=== PATIENT | female | born 1985 | race Caucasian/White ===

== ENCOUNTER → 2020-07-29 17:17 | Outpatient (CLI) | payer MEDICAID, SELFPAY | PROVIDERS: PCP Internal Medicine; Referring Provider Nurse Practitioner Family; Visit Provider Nurse Practitioner Family | DX: Z20.828 Contact with and (suspected) exposure to other viral communicable diseases (principal) | CPT/HCPCS: 87635; C9803; U0003 ==

== ENCOUNTER → 2022-10-20 | Outpatient (CLI) | payer MEDICAID, SELFPAY ==
[2022-10-20 16:47] LABS: Mucous, Urine 0 SEEN /hpf (<or=2+)
[2022-10-20 17:35] LABS: Color, Urine Yellow (Yellow); Glucose, Dipstick Normal (Normal); Ketone-Dipstick Negative (Negative); Leukocyte Esterase-Dipstick 500 /ul (Negative); Nitrite-Dipstick Positive (Negative); Occult Blood-Urine 50 /ul (Negative); Protein-Dipstick 30 mg/dl (Negative); Specific Gravity, Urine 1.015 (1.002-1.030); Urine Bilirubin Dipstick Negative (Negative); Urine Clarity Cloudy (Clear); Urine Urobilinogen 1 mg/dl (Normal)
[2022-10-20 21:33] LABS: Red Blood Cells-Urine 0-5 SEEN /hpf (0-5); Squamous Epithelial Cells - UA 0-5 SEEN /hpf (5-10); White Blood Cells 50-100 SEEN /hpf (0-5)
[2022-10-20 21:35] LABS: Bacteria RARE /hpf (None Seen)
== END | disposition home or self-care (01) ==
LOC: LABSPEC 16:31
PROVIDERS: PCP Internal Medicine; Referring Provider Nurse Practitioner Family; Visit Provider Nurse Practitioner Family
DX: R30.0 Dysuria (principal); R35.0 Frequency of micturition; M54.50 Low back pain, unspecified
CPT/HCPCS: 81001; 87086; 87088

== ENCOUNTER 2023-01-23 10:04 | Emergency (ER) | payer MEDICAID, SELFPAY ==
[2023-01-23 10:04] VITALS: BP 116/86; PULSE 55; RESP 16; TEMP 36.1; O2SAT 99; BMI 51.0
--- NOTE | 2023-01-23 10:35 | CT_ITS ---
STUDY: CT ABDOMEN AND PELVIS WITH CONTRAST REASON FOR EXAM: Female, 38 years old. Back pain, C diff, Gallstones RADIATION DOSAGE (If Supplied By Facility): CTDIvol = ( 20.21 ) mGy, DLP = ( 1370.69 ) mGycm TECHNIQUE: Transaxial images were obtained from the dome of the diaphragm to the symphysis pubis without oral contrast. IV 100mL Isovue-300 was administered. Sagittal and coronal images were reconstructed. Individualized dose optimization techniques were used for this CT. COMPARISON: None. FINDINGS: The visualized lung bases are unremarkable. The visualized portions of the heart are within normal limits. Normal liver. There are multiple small gallstones. There is mild splenomegaly. Normal pancreas. Normal bilateral adrenal glands. Normal right kidney. Normal left kidney. Normal visualized stomach. Minimally fluid distended proximal small bowel. There are scattered colonic diverticula consistent with diverticulosis. There are surgical clips in the region of the appendix consistent with a prior appendectomy. Normal abdominal aorta. Normal inferior vena cava. Normal retroperitoneum. Normal urinary bladder. Varicose veins are seen in the subcutaneous tissues overlying the left groin extending to the distal portion of the pelvis. Normal osseous structures. CT/Abdomen/Pelvis W IV Cont ONLY IMPRESSION: Mild splenomegaly. Multiple small gallstones. Varicose veins seen in the subcutaneous tissues overlying the left groin and lower left lateral abdominal wall. Minimally distended fluid-filled proximal small bowel loops. Electronically Signed: Emir Cespedes MD at 12:22 EDT ,
--- NOTE | 2023-01-23 10:39 | EX.ED.DYSGE1 ---
HPI History of Present Illness Chief Complaint: Back Informant: patient Onset/Context/Timing Onset: Today Narrative Narrative: Patient present secondary to low back pain. She woke this morning with low back pain and describes pain across her low back wrapping around into her abdomen. Patient was recently admitted to [facility] where she was told she had gallstones and C. difficile. She was discharged yesterday with p.o. vancomycin. She has not had fever or chills. PFSH PFS Medical History Anemia Home Medications aripiprazole 10 mg tablet (Abilify) 10 mg PO DAILY 10/20/22 [History Last Taken Unknown] buspirone 10 mg tablet 20 mg PO BID 10/20/22 [History Last Taken Unknown] folic acid 1 mg tablet 1 mg PO DAILY 10/20/22 [History Last Taken Unknown] phenazopyridine 200 mg tablet (Pyridium) 200 mg PO TID PRN pain 6 doses #6 tabs 10/20/22 [Rx Last Taken Unknown] lidocaine 5 % topical patch (Lidoderm) 2 patch topical DAILY #15 ea 01/23/23 [Rx Last Taken Unknown] Allergy/AdvReac Type Severity Reaction Status Date / Time cefuroxime axetil Allergy Rash Verified 01/23/23 10:08 [From Ceftin] codeine AdvReac Nausea Verified 01/23/23 10:08 Surgical History History of delivery History of hysterectomy Hx of appendectomy Social History Smoking Status: Current some day smoker tobacco type: cigarettes ROS ROS ED Constitutional Constitutional ED: Denies chills or fever(s) Eyes Eyes: Denies change in vision or discharge from eye(s) ENT ENT ED: Denies discharge from eye(s), rhinorrhea or sore throat Cardiovascular Cardiovascular: Denies chest pain or palpitations Respiratory/Chest Respiratory/Chest: Denies cough or dyspnea Gastrointestinal Gastrointestinal: Reports abdominal pain and diarrhea; Denies nausea or vomiting Genitourinary Genitourinary ED: Denies dysuria Musculoskeletal Musculoskeletal: Reports back pain; Denies extremity pain Integumentary Denies Abrasions or rash Neurologic Neurologic: Denies headache(s) or weakness Allergic/Immunologic Allergic/Immunologic ED: Denies lip swelling or urticaria EXAM Physical Exam Const Vital Signs: 01/23/23 10:04 Temperature 97.0 F L Temperature Source Temporal Pulse Rate 55 L Respiratory Rate 16 Blood Pressure 116/86 H Blood Pressure Mean 96 Pulse Ox 99 Oxygen Delivery Method Room Air Positive well nourished and well developed General Appearance ED: well developed HEENT Reports normocephalic and head/scalp atraumatic Eyes PERRL and EOMs intact bilaterally Neck supple Chest Wall inspection of chest normal and palpation of chest normal Resp normal respiratory effort and clear to auscultation bilaterally Cardio regular rate and regular rhythm GI non-tender Auscultation: hypoactive bowel sounds Palpation: soft Back/Spine Back/Spine Narrative: Reproducible tenderness in the lumbar paraspinal muscles bilaterally. No overlying skin change. Extremity normal to inspection Neuro oriented x3 and no sensory deficits noted Sensorium / Orientation: alert Motor Exam: strength 5/5 throughout Psych mental status grossly normal Skin no rashes or lesions noted MDM MDM MDM Narrative Medical decision making narrative: Patient was given morphine and Zofran for pain. Labwork obtained to evaluate for leukocytosis, anemia, and electrolyte derangement. CT scan of the abdomen and pelvis obtained given her recent diagnosis of C. difficile and gallstones with increased pain. Lab Data Attestation: I reviewed the patient's lab results. Labs: Laboratory Results - last 24 hr 01/23/23 01/23/23 01/23/23 10:50 10:50 10:50 WBC 4.7 RBC 4.70 Hgb 13.9 Hct 41.5 MCV 88.3 MCH 29.6 MCHC 33.5 RDW Std Deviation 41.8 RDW Coeff of Veronica 13.0 Plt Count 312 MPV 9.0 Immature Gran % (Auto) 0.400 Neut % (Auto) 59.1 Lymph % (Auto) 31.5 [place] % (Auto) 7.5 Eos % (Auto) 1.3 Baso % (Auto) 0.2 Absolute Neuts (auto) 2.8 Absolute Lymphs (auto) 1.47 Nucleated RBC % 0 Sodium 139 Potassium 3.6 Chloride 109 H Carbon Dioxide 24.0 Anion Gap 6 BUN 7 Creatinine 0.61 Estim Creat Clear Calc 90.70 Est GFR (MDRD) Af Amer 141 Est GFR (MDRD) Non-Af 117 BUN/Creatinine Ratio 11.4 Glucose 84 Lactic Acid 1.0 Calcium 9.6 Total Bilirubin 0.80 Direct Bilirubin 0.19 AST 31 ALT 43 Alkaline Phosphatase 57 Total Protein 7.6 Albumin 3.6 Globulin 4.0 Lipase 104 Radiography Diagnostic Testing: Clinical Impression(s) from Imaging Studies Abdomen/Pelvis CT 01/23/23 10:35 IMPRESSION: Mild splenomegaly. Multiple small gallstones. Varicose veins seen in the subcutaneous tissues overlying the left groin and lower left lateral abdominal wall. Minimally distended fluid-filled proximal small bowel loops. Electronically Signed: Emir Cespedes MD at 12:22 EDT , Treatment and Re-Evaluation :: CBC and chemistry studies are unremarkable. Lactic acid is normal at 1. CT scan with IV contrast reveals mild splenomegaly and multiple small gallstones. Minimally distended fluid-filled proximal small bowel loops are appreciated. Test results are discussed with the patient and family at bedside. I was able to review some of the records from [facility], however a discharge summary is not completed on either the ER visit or her hospital stay. I did find her C. difficile test. She tested positive for the C. difficile antigen but negative for the C. difficile toxin. Given that she has already been started on p.o. vancomycin I did encourage her to complete the full course. She will be written for Lidoderm patches for her back and can take Tylenol or ibuprofen. Return instructions given. Discharge Plan Triage Chief Complaint: Back ED Provider: Kimi Lin Dx/Rx/DC Orders Clinical Impression: Abdominal pain, Back pain Instructions: ED Back Pain (Acute or Chronic) Prescriptions: New lidocaine [Lidoderm] 5 % adhesive patch,medicated 2 patch topical DAILY Qty: 15 0RF Rx Instructions: leave on most painful area for up to 12 hrs No Action buspirone 10 mg tablet 20 mg PO BID aripiprazole [Abilify] 10 mg tablet 10 mg PO DAILY folic acid 1 mg tablet 1 mg PO DAILY phenazopyridine [Pyridium] 200 mg tablet 200 mg PO TID PRN (Reason: pain) Qty: 6 0RF Primary Care Provider: Cassie Villar Referrals: Cassie Villar MD [Primary Care Provider] - 1 Week Disposition Disposition: Home, Self Care Discharge Date/Time: 01/23/23 13:10
[2023-01-23] MEDS: 0.9% Normal Saline 1,000 ML 150 ML IV (10:58)
[2023-01-23] MEDS: Ondansetron 4 MG/2 ML Vial IV (10:58)
[2023-01-23] MEDS: Morphine 4 MG/ML Syringe IV (10:58)
[2023-01-23 11:09] LABS: Absolute Lymphocyte Count 1.47 X10^3/uL (0.83-4.51); Absolute Neutrophil Count 2.8 X10^3/uL (2.0-7.7); Basophil# 0.01 X10^3/uL; Basophil% 0.2 % (0-1); Eosinophil# 0.06 X10^3/uL; Eosinophils% 1.3 % (0-5); Hematocrit 41.5 % (37-47); Hemoglobin 13.9 g/dL (12.0-15.0); Lymphocyte # 1.47 X10^3/ul (0.83-4.51); Lymphocyte % 31.5 % (19-41); Mean Corp Hgb Conc 33.5 g/dL (32-36); Mean Corpuscular Hgb 29.6 pg (27.0-32.0); Mean Corpuscular Volume 88.3 fL (81-99); Monocyte# 0.35 X10^3/uL; Monocyte% 7.5 % (0-10); NRBC Flagged by Analyzer 0 % (0-5); Neutrophil # 2.75 X10^3/uL (2.7-7.7); Neutrophil % 59.1 % (47-70); Platelet Count 312 K/mm3 (150-450); RBC Distribution Width SD 41.8 fl (35.1-43.9); White Blood Count 4.7 K/mm3 (4.4-11.0)
[2023-01-23 11:31] LABS: AST(SGOT) 31 U/L (15-37); Alanine Aminotransfer ALT/SGPT 43 U/L (13-56); Albumin, Serum 3.6 g/dL (3.2-5.0); Alkaline Phosphatase 57 U/L (45-117); Anion Gap 6 (5-15); BUN 7 mg/dL (7-18); BUN/Creat Ratio 11.4 RATIO (10-20); Bilirubin, Direct 0.19 mg/dL (0.00-0.30); Calcium,Total 9.6 mg/dL (8.5-10.1); Chloride 109 mmol/L (98-107); Creatinine, Serum 0.61 mg/dL (0.55-1.02); EST Glomerular Filtration Rate 117 mL/min (>60); Est Glom Filt Rate - Afr Amer 141 mL/min (>60); Glucose 84 mg/dL (74-106); Lipase 104 U/L (73-393); Potassium 3.6 mmol/L (3.5-5.1); Protein, Total 7.6 g/dL (6.4-8.2); Sodium Level 139 mmol/L (136-145)
== END 2023-01-23 13:10 | disposition home or self-care (01) ==
PROVIDERS: Emergency Provider Emergency Medicine; PCP Internal Medicine; Visit Provider Emergency Medicine
DX: M54.9 Dorsalgia, unspecified (principal); K80.20 Calculus of gallbladder without cholecystitis without obstruction; F17.210 Nicotine dependence, cigarettes, uncomplicated; R10.9 Unspecified abdominal pain
CPT/HCPCS: 74177; 80048; 80076; 83605; 83690; 85025; 96361; 96374; 96375; 99283; J7030; Q9967; A4216; J2405

== ENCOUNTER 2023-08-25 12:09 | Emergency (ER) | payer MEDICAID, SELFPAY ==
[2023-08-25 12:09] VITALS: BP 148/101; PULSE 77; RESP 16; TEMP 36.4; O2SAT 98; BMI 47.1
--- NOTE | 2023-08-25 13:39 | VDLE_ITS ---
Reason For Study: Left groin pain Procedure LEFT This is a venous duplex using B-mode, color GSV is normal. flow and spectral Doppler. CFV is compressible, spontaneous, phasic, Exam performed portable in ED. competent, and demonstrates normal A preliminary report was called and/or faxed augmentation. to Dr. Yoon. FV is compressible, spontaneous, phasic, competent and demonstrates normal augmentation. POP V is compressible, spontaneous, phasic, competent and demonstrates normal augmentation. T/P Trunk is compressible. PTV is compressible. LT PerV is compressible. Thrombus filled varicose veins are noted in the left groin. VL/Venous Duplex US, Unilateral Interpretation Summary There is no evidence of left lower extremity deep vein thrombosis. Left great s aphenous vein appears patent and compressible segmentally. Superficial thrombophlebitis varicosities left groin Ordering Physician: Pablo Yoon Referring Physician: Phuong Jackson Performed By: Aruna Newberry RVT
--- NOTE | 2023-08-25 13:40 | EX.ED.DYSGE1 ---
HPI History of Present Illness Chief Complaint: Other, Pain/Inj Narrative Narrative: 38-year-old female past medical history of recent laparoscopic cholecystectomy 2 days ago, presents with left upper thigh pain and redness that she noticed this morning. She states that yesterday, she had soreness in her left upper thigh. She awoke this morning with increased pain and redness to the area. She denies any recent trauma. No chest pain or shortness of breath, no fevers or chills. She states that she is concerned that she has a blood clot. She did not stay overnight in the hospital and this was done on an outpatient basis. [facility] Medical History Anemia Home Medications aripiprazole 10 mg tablet (Abilify) 10 mg PO DAILY 10/20/22 [History Last Taken Unknown] buspirone 10 mg tablet 20 mg PO BID 10/20/22 [History Last Taken Unknown] folic acid 1 mg tablet 1 mg PO DAILY 10/20/22 [History Last Taken Unknown] phenazopyridine 200 mg tablet (Pyridium) 200 mg PO TID PRN pain 6 doses #6 tabs 10/20/22 [Rx Last Taken Unknown] lidocaine 5 % topical patch (Lidoderm) 2 patch topical DAILY #15 ea 01/23/23 [Rx Last Taken Unknown] azithromycin 250 mg tablet (Zithromax Z-Devante) See Rx Instructions PO .COMPLEX #6 tabs 05/16/23 [Rx Last Taken Unknown] Allergy/AdvReac Type Severity Reaction Status Date / Time cefuroxime axetil Allergy Rash Verified 08/25/23 12:11 [From Ceftin] codeine AdvReac Nausea Verified 08/25/23 12:11 Surgical History History of delivery History of hysterectomy Hx of appendectomy Hx of cholecystectomy Social History Smoking Status: Current some day smoker tobacco type: cigarettes ROS ROS ED ROS Narrative Constitutional: No fever, no chills. HEENT: No sore throat. No neck pain. No loss of vision. No rhinorrhea. Cardiovascular: No chest pain. No palpitations. No pedal edema. Respiratory: No cough, no shortness of breath. Abdominal: No abdominal pain. No nausea. No vomiting. Genitourinary: No dysuria. No hematuria. Musculoskeletal: Left anterior, upper thigh pain and redness. No arthralgias. Neurologic: No headaches. No dizziness. No lightheadedness. Skin: No rash. No change in color. Psychiatric: No depression. No anxiety. EXAM Physical Exam Narrative Exam Narrative: Afebrile. Vital signs noted. HEENT: Normocephalic. Atraumatic. PERRL, EOMI. Neck soft and supple. No point tenderness or step off. Cardiovascular: Regular rate and rhythm. No murmurs, rubs, or gallops appreciated. Respiratory: No tachypnea. Lungs clear to auscultation bilaterally. Gastrointestinal: Abdomen soft, appropriately tender, laparoscopic port incisions clean, dry, and intact with bandages, abdomen with normoactive bowel sounds. No rebound or guarding. Neurological: Awake. Alert. Nonfocal, nonlateralizing. Skin: No rash. Mild erythema and tenderness along varicose veins/superficial veins left anterior thigh. Musculoskeletal: No pedal edema. Full range of motion extremities. Palpable dorsalis pedis pulse. No calf swelling. Const Vital Signs: 08/25/23 12:09 08/25/23 13:06 Temperature 97.6 F L Temperature Source Temporal Pulse Rate 77 Respiratory Rate 16 Respiratory Effort Normal Non-Labored Respiratory Pattern Normal Blood Pressure 148/101 H Blood Pressure Mean 116 Pulse Ox 98 Oxygen Delivery Method Room Air MDM MDM MDM Narrative Medical decision making narrative: In the differential diagnosis would be contusion of left upper thigh versus superficial/varicose vein thrombophlebitis, versus DVT. I have low concern for DVT given her superficial tenderness and engorgement of those veins along with mild firmness. Ultrasound was obtained of the left lower extremity. Preliminary read of the venous Doppler of the left lower extremity says not show any evidence of DVT. She does have superficial thrombophlebitis of varicose veins in that area. At this point in time, I do not feel she requires observation or admission. She was referred to the vascular surgeon. She will continue warm compresses. As she is only postop day 2 from her laparoscopic cholecystectomy, I am hesitant to start her on aspirin or NSAIDs given the risk of postoperative bleeding. She will take [id number] Tylenol as needed and any pain medication she was given for her surgery. Return instructions to the emergency department were reviewed. Disposition is discharged home in stable condition. History & Record Review Discussion w/independent historian: Patient Additional record(s) reviewed:: Prior ED visit (Noncontributory to current chief complaint.) Discharge Plan Triage Chief Complaint: Other, Pain/Inj ED Provider: Pablo Yoon Dx/Rx/DC Orders Clinical Impression: Superficial thrombophlebitis, Varicose vein of lower extremity with phlebitis Instructions: ED Thrombophlebitis, Superficial, ED Varicose Veins Prescriptions: No Action buspirone 10 mg tablet 20 mg PO BID aripiprazole [Abilify] 10 mg tablet 10 mg PO DAILY folic acid 1 mg tablet 1 mg PO DAILY phenazopyridine [Pyridium] 200 mg tablet 200 mg PO TID PRN (Reason: pain) Qty: 6 0RF azithromycin [Zithromax Z-Devante] 250 mg tablet See Rx Instructions PO .COMPLEX Qty: 6 0RF Rx Instructions: take 500 mg today (day 1), then 250 mg for 4 days (days 2-5) PO lidocaine [Lidoderm] 5 % adhesive patch,medicated 2 patch topical DAILY Qty: 15 0RF Rx Instructions: leave on most painful area for up to 12 hrs Primary Care Provider: Phuong Jackson Referrals: Stu Drake MD [Med Staff - Active Staff] - 1 Week if not improving Phuong Jackson MD [Primary Care Provider] - Disposition Disposition: Home, Self Care
[2023-08-25 15:07] VITALS: BP 140/76; PULSE 66; RESP 18; O2SAT 99
== END 2023-08-25 15:09 | disposition home or self-care (01) ==
PROVIDERS: Emergency Provider Emergency Medicine; PCP Internal Medicine Infectious Disease; Visit Provider Emergency Medicine
DX: I80.02 Phlebitis and thrombophlebitis of superficial vessels of left lower extremity (principal); I83.892 Varicose veins of left lower extremity with other complications; F17.210 Nicotine dependence, cigarettes, uncomplicated; Z90.49 Acquired absence of other specified parts of digestive tract; Z79.899 Other long term (current) drug therapy
CPT/HCPCS: 93971; 99283